=== PATIENT | male | born 1965 | race Caucasian/White ===

== ENCOUNTER 2016-04-01 11:18 | Emergency (ER) | payer OTHER ==
[2016-04-01 11:29] VITALS: BP 163/99
[2016-04-01] MEDS ORDERED: LIDOCAINE-MPF 1% 5 ML VIAL ONE (12:07)
--- NOTE | 2016-04-01 12:35 | ED Physician Documentation ---
PD HPI UPPER EXT INJURY - Stated complaint Stated Complaint: FINGER LAC - Chief complaint Chief Complaint: Laceration - History obtained from History obtained from: Patient, Family - History of Present Illness Location: Left, Finger (index and middle on left) Where injury occurred: Home Timing - onset: Today Timing - duration: Minutes Timing - details: Abrupt onset, Still present Improved by: Rest, Immobilization Worsened by: Moving, Palpating Associated symptoms: No: Weakness, Numbness, Tingling, Swelling Similar symptoms before: Diagnosis (laceration) Recently seen: Not recently seen - Additonal information Additional information: 50 y/o male was moving a couch into his house today when he caught his fingers in the extension mechanism for the recliner and lacerated the dorsum of the index and middle fingers. He used some quik stop to get the bleeding controlled. Review of Systems Constitutional: denies: Fever Eyes: denies: Decreased vision Ears: denies: Ear pain Nose: denies: Congestion Throat: denies: Oral lesions / sores Respiratory: denies: Dyspnea, Cough : denies: Dysuria Skin: reports: Laceration (s) Musculoskeletal: denies: Neck pain, Back pain, Extremity pain Neurologic: denies: Generalized weakness, Focal weakness, Numbness PD PAST MEDICAL HISTORY - Past Medical History Past Medical History: No - Past Surgical History Past Surgical History: No - Allergies Allergies/Adverse Reactions: Allergies Allergy/AdvReac Type Severity Reaction Status Date / Time No Known Drug Allergies Allergy Verified 04/01/16 11:28 - Social History Does the pt smoke?: No Smoking Status: Never smoker Does the pt drink ETOH?: No Does the pt have substance abuse?: No - Immunizations Immunizations are current?: No Immunizations: TDAP >10years/unknown PD ED PE NORMAL - Vitals Vital signs reviewed: Yes (hypertensive) - General General: No acute distress, Well developed/nourished - HEENT HEENT: Atraumatic, PERRL, EOMI - Respiratory Respiratory: No respiratory distress - Derm Derm: Normal color, Warm and dry, No rash - Extremities Extremities: No deformity, No edema, Other (over the PIP of the left index is a 2.5cm flap laceration that does not involve deeper structures. The wound is clean and the distal N/V is intact. A similar but much smaller 0.5cm laceration is over the PIP on the middle finger. ) - Neuro Neuro: No motor deficit, No sensory deficit - Psych Psych: Normal mood, Normal affect Results - Vitals Vitals: Vital Signs - 24 hr 04/01/16 11:24 Temperature 36.4 C L Heart Rate 73 Respiratory 18 Rate Blood Pressure 163/99 H O2 Saturation 96 Oxygen O2 Source Room air - Rads (name of study) left fingers Radiology: Prelim report reviewed (impression: 1. Soft tissue laceration noted. 2. Tiny, teardrop shaped corticated calcifications dorsal to the base of the middle phalanx could conceivably represent a tiny avulsion, age indeterminate. A could also represent and benign calcification with an attendant.), EMP read indepedently, See rad report Procedures - Laceration (location) left index Length in cm: 2.5 Wound type: Curved, Flap, Clean Neurovascular status: Sensory intact, Motor intact, Vascular intact Anesthesia: Lidocaine 1% Wound Preparation: Hibiclens, Irrigated copiously NS, Wound explored, To the base Skin layer closure: Nylon, Interrupted, Size #-0 - enter number (5-0), Other (a single suture is placed to the lacertion on the left index.) Other: Patient tolerated well, No complications, Neurovascular intact, Dressing applied, Tetanus booster given Complexity: Simple PD MEDICAL DECISION MAKING - ED course Complexity details: reviewed results, re-evaluated patient, considered differential, d/w patient, d/w family ED course: 50 y/o male with lacerations to the index and middle finger is sutured and given a tetanus booster. Departure - Departure Disposition: 01 Home, Self Care Clinical Impression: Laceration Condition: Stable Instructions: ED Laceration Hand Follow-Up: Your, doctor [Other] Comments: sutures out in 10-14 days Discharge Date/Time: 04/01/16 13:03
[2016-04-01] MEDS ORDERED: TETANUS/DIPHTHERIA/PERTUSSIS 0.5 ML SYRINGE IM ONE (12:40)
[2016-04-01] MEDS: TETANUS/DIPHTHERIA/PERTUSSIS 0.5 ML SYRINGE IM ONE (12:43)
--- NOTE | 2016-04-01 12:59 | XRAY Preliminary Report ---
Exam: XR Finger(s) LT IMPRESSION: 1. Soft tissue laceration noted. 2. Tiny, teardrop shaped corticated calcification dorsal to the base of the middle phalanx could conc eivably represent a tiny avulsion, age indeterminate. It could also represent a benign calcification within a tendon. [facility] SITE ID: [id number]
--- NOTE | 2016-04-01 13:02 | XRAY Report ---
EXAM: LEFT INDEX DIGIT RADIOGRAPHY EXAM DATE: 04/01/2016 11:59 AM. CLINICAL HISTORY: Laceration. COMPARISON: None. TECHNIQUE: 3 views. FINDINGS: Bones: There is a tiny teardrop shaped calcification immediately dorsal to the base of the middle pha lanx. Margins appear corticated. The bones otherwise appear unremarkable. Joints: Normal. No effusions. No subluxations. Soft Tissues: Presumed laceration noted dorsal to the proximal aspect of the middle phalanx. No radio paque foreign bodies. IMPRESSION: 1. Soft tissue laceration noted. 2. Tiny, teardrop shaped corticated calcification dorsal to the base of the middle phalanx could conc eivably represent a tiny avulsion, age indeterminate. It could also represent a benign calcification within a tendon. [facility] Referring Provider Line: [phone] SITE ID: [id number]
== END 2016-04-01 13:03 | disposition home or self-care (01) ==
LOC: ED 11:18
DX: S61.211A Laceration without foreign body of left index finger without damage to nail, initial encounter (principal); S61.213A Laceration without foreign body of left middle finger without damage to nail, initial encounter; W45.8XXA Other foreign body or object entering through skin, initial encounter; Y93.E6 Activity, residential relocation; Y92.018 Other place in single-family (private) house as the place of occurrence of the external cause; Z23 Encounter for immunization
CPT/HCPCS: 12001; 73140; 90471; 99283

== ENCOUNTER 2016-08-07 11:19 | Emergency (ER) | payer OTHER ==
[2016-08-07] MEDS ORDERED: cefTRIAXone 1 GM VIAL IM STA (11:58)
[2016-08-07] MEDS ORDERED: DEXAMETHASONE 10 MG/ML VIAL PO STA (11:58)
[2016-08-07] MEDS ORDERED: DEXAMETHASONE 10 MG/ML VIAL ONE (12:03)
[2016-08-07] MEDS ORDERED: cefTRIAXone 1 GM VIAL ONE (12:03)
[2016-08-07] MEDS ORDERED: LIDOCAINE 1% 2 ML VIAL ONE (12:04)
== END 2016-08-07 13:40 | disposition home or self-care (01) ==
DX: G51.0 Bell's palsy (principal); H66.001 Acute suppurative otitis media without spontaneous rupture of ear drum, right ear

== ENCOUNTER 2018-03-22 08:29 | Outpatient (CLI) | payer OTHER ==
[2018-03-22] MEDS ORDERED: IOVERSOL 320 100 ML VIAL IVP ONE ×2 (08:55→15:41)
[2018-03-22] MEDS ORDERED: IOVERSOL 320 50 ML VIAL ONE (08:55)
--- NOTE | 2018-03-22 11:43 | CT Report ---
Reason: HEMATURIA Procedure Date: 03/22/2018 Accession Number: [id number] / [id number] Procedure: CT - Abdomen/Pelvis W/WO CPT Code: FULL RESULT: EXAM: CT ABDOMEN WITHOUT AND WITH CONTRAST EXAM DATE: 03/22/2018 10:01 AM. HISTORY: Hematuria. COMPARISON: None. TECHNIQUE: Routine helical CT imaging was performed through the abdomen before and after administration of IV contrast: 100 mL Optiray 320. Enteric contrast: The patient reported being administered oral contrast. A risk-benefit discussion regarding changes in sensitivity of the examination for genitourinary masses was held with the patient by the radiologist. The mutual decision to proceed with the imaging was reached based on patient preference. No significant streak artifact is seen and no relevant structure is masked by the contrast opacified bowel lumen. The examination is not compromised. Reconstruction: Coronal and sagittal. In accordance with CT protocol optimization, one or more of the following dose reduction techniques were utilized for this exam: automated exposure control, adjustment of mA and/or KV based on patient size, or use of iterative reconstructive technique. FINDINGS: Lung Bases: Unremarkable. Liver: Normal. No masses. Gallbladder/Bile Ducts: Unremarkable. Spleen: Normal. Pancreas: Normal. No masses or ductal obstruction. Adrenal Glands: Normal. Kidneys: The left kidney demonstrates cortical scarring/loss in the midpole as well as two 6 mm nonobstructing mid pole calculi. The right kidney is unremarkable with no obstruction, calculi or mass. Bladder and ureters: Both ureters are suboptimally opacified by contrast and therefore sensitivity for ureteral urothelial lesions is decreased. Within these limitations, no mass or distortion of the ureters is identified. The bladder is well opacified by contrast and no abnormalities are seen. Peritoneal Cavity/Bowel: Normal. No free fluid, free air or adenopathy. No masses or acute inflammatory process. The appendix is well visualized and normal. Vasculature: No aneurysms or other significant abnormality. Bones: No significant abnormality. Other: None. IMPRESSION: Cortical loss/scarring in the left renal midpole with 2 nonobstructing 6 mm calculi. [facility]
== END 2018-03-22 08:30 | disposition home or self-care (01) ==
LOC: DI 08:29
PROVIDERS: ATTEND Internal Medicine
DX: N20.0 Calculus of kidney (principal); R31.9 Hematuria, unspecified
CPT/HCPCS: 74178; Q9967